=== PATIENT | female | born 2000 | race Two or more races ===

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

== ENCOUNTER 2019-03-07 21:14 | Emergency (ER) | payer BC ==
[~2019-03-07] VITALS: Ht 160 cm; Wt 79.4 kg
[2019-03-07 21:20] VITALS: BP 133/78
[2019-03-07] MEDS ORDERED: IBUPROFEN 600 MG TABLET PO ONE ×2 (22:00→22:02)
[2019-03-07] MEDS ORDERED: ONDANSETRON 4 MG TAB.RAPDIS ONE (22:02)
[2019-03-07] MEDS ORDERED: ONDANSETRON 4 MG TAB.RAPDIS SL ONE (22:30)
== END 2019-03-07 23:10 | disposition home or self-care (01) ==
LOC: ER 21:14
DX: B34.8 Other viral infections of unspecified site (principal)
CPT/HCPCS: 87804 ×2; 99283; Q0162

== ENCOUNTER 2019-03-11 02:42 | Emergency (ER) | payer BC, OTHER ==
[~2019-03-11] VITALS: Ht 157.5 cm; Wt 68.0 kg
[2019-03-11 02:45] VITALS: BP 118/68
--- NOTE | 2019-03-11 02:45 | NUR ---
PT AAOX4. C/O FEVER, SORE THROAT, LIP BLISTERS, NAUSEA, CHILLS X1 WEEK. ON KEFLEX X2 DAYS. PLACED ON MONITOR AND PULSE OX. VSS. AWAITING MD FOR EVAL.
[2019-03-11] MEDS ORDERED: ACETAMINOPHEN ES 500 MG TABLET ONE (03:11)
[2019-03-11] MEDS ORDERED: ONDANSETRON 4 MG TAB.RAPDIS ONE (03:12)
[2019-03-11] MEDS ORDERED: ONDANSETRON 4 MG TAB.RAPDIS SL ONE (03:30)
[2019-03-11] MEDS ORDERED: ACETAMINOPHEN ES 500 MG TABLET PO ONE (03:30)
== END 2019-03-11 03:45 | disposition home or self-care (01) ==
LOC: ER 02:44
DX: B34.9 Viral infection, unspecified (principal)
CPT/HCPCS: 99283; Q0162

== ENCOUNTER 2020-06-08 13:15 | Outpatient (CLI) | payer BC, OTHER ==
[2020-06-08 13:37] LABS: BASOPHILS # (AUTO) 0.1 /CMM (0.0-0.2); BASOPHILS % (AUTO) 0.6 % (0.0-2.0); EOSINOPHILS % (AUTO) 0.3 % (0.0-6.0); HEMATOCRIT 37 % (33-45); HEMOGLOBIN 12.2 g/dL (11.5-14.8); LYMPHOCYTES # (AUTO) 2.5 /CMM (0.8-4.8); MEAN CORPUSCULAR HGB CONC 33 g/dl (31.0-36.0); MEAN CORPUSCULAR VOLUME 85 fL (82-100); MONOCYTES # (AUTO) 0.4 /CMM (0.1-1.30); MONOCYTES % (AUTO) 4.4 % (2.0-12.0); NEUTROPHILS # (AUTO) 6.7 /CMM (1.8-8.9); NEUTROPHILS % (AUTO) 68.7 % (43.0-81.0); PLATELET COUNT (AUTO) 307 /CMM (150-450); WHITE BLOOD COUNT (AUTO) 9.7 K/uL (4.3-11.0)
== END 2020-06-08 23:59 | disposition home or self-care (01) ==
LOC: LAB 13:15
DX: Z01.812 Encounter for preprocedural laboratory examination (principal); J34.2 Deviated nasal septum; J34.3 Hypertrophy of nasal turbinates; J34.89 Other specified disorders of nose and nasal sinuses
CPT/HCPCS: 36415; 85025-TC; 85610-TC; 85730-TC

== ENCOUNTER → 2021-05-28 | Emergency (ER) | payer BC, OTHER ==
[~2021-05-28] VITALS: Ht 160 cm; Wt 68.0 kg
[~2021-05-28] MED LIST: AMOX-430 PO; KETOROLAC TROMETHAMINE INJ 30 MG/ML VIAL ONE; KETOROLAC TROMETHAMINE INJ 60 MG/2 ML VIAL IM ONE; TDAP [DIPH/PERTUSSIS/TET] 0.5 ML VIAL IM ONE
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
--- NOTE | 2021-05-28 01:56 | NUR ---
XRAY AT BEDSIDE
--- NOTE | 2021-05-28 04:54 | NUR ---
Patient discharged to home in stable condition. Written and verbal after care instructions given. Patient verbalizes understanding of instruction.
[2021-05-28 04:55] VITALS: BP 121/77
== END | disposition home or self-care (01) ==
LOC: ER 00:30
DX: S02.5XXA Fracture of tooth (traumatic), initial encounter for closed fracture (principal); S42.001A Fracture of unspecified part of right clavicle, initial encounter for closed fracture; V49.49XA Driver injured in collision with other motor vehicles in traffic accident, initial encounter; Y93.89 Activity, other specified; Y92.413 State road as the place of occurrence of the external cause; Y99.8 Other external cause status
CPT/HCPCS: 71100; 73030; 90471; 90715; 96372; 99284; J1885

== ENCOUNTER → 2023-07-17 | Outpatient (CLI) | payer BC, OTHER ==
[~2023-07-17] MED LIST changes: -KETOROLAC TROMETHAMINE INJ 30 MG/ML VIAL ONE; -KETOROLAC TROMETHAMINE INJ 60 MG/2 ML VIAL IM ONE; -TDAP [DIPH/PERTUSSIS/TET] 0.5 ML VIAL IM ONE
[2023-07-17 12:45] LABS: APPEARANCE,URINE CLEAR (CLEAR); BILIRUBIN,URINE NEGATIVE (NEGATIVE); BLOOD, URINE NEGATIVE Ery/uL (NEGATIVE); COLOR,URINE YELLOW (YELLOW); KETONES,URINE NEGATIVE (NEGATIVE); LEUKOCYTE ESTERASE ,URINE TRACE (NEGATIVE); NITRITE, URINE NEGATIVE (NEGATIVE); PH,URINE 6.5 (5.0-8.0); PROTEIN,URINE NEGATIVE (NEGATIVE); UGLUCOSE NEGATIVE (NEGATIVE); UROBILINOGEN,URINE 0.2 EU/dL (0.2)
[2023-07-17 13:02] LABS: RBC,URINE 0-2 /HPF (0-2)
[2023-07-17 13:03] LABS: ADD URINE CULTURE YES; SQUAMOUS EPITHELIAL CELL,UR Few /HPF (None Seen)
[2023-07-17 13:08] LABS: BACTERIA,URINE Few /HPF (None Seen)
[2023-07-17 13:22] LABS: THYROID STIMULATING HORMONE 3.826 uIU/mL (0.358-3.74)
[2023-07-17 13:32] LABS: ALBUMIN 3.8 g/dL (3.4-5.0); BILIRUBIN,TOTAL 0.8 mg/dL (0.2-1.0); CALCIUM, SERUM 9.9 mg/dL (8.5-10.1); CREATININE 0.7 mg/dL (0.6-1.3); POTASSIUM 3.8 mmol/L (3.5-5.1); TOTAL PROTEIN, SERUM 8.1 g/dL (6.4-8.2)
[2023-07-17 13:50] LABS: BASOPHILS % (AUTO) 0.4 % (0.0-2.0); EOSINOPHILS % (AUTO) 0.6 % (0.0-6.0); HEMATOCRIT 38 % (33-45); HEMOGLOBIN 12.6 g/dL (11.5-14.8); LYMPHOCYTES # (AUTO) 2.4 K/uL (0.8-4.8); LYMPHOCYTES % (AUTO) 28.4 % (20.0-44.0); MEAN CORPUSCULAR HEMOGLOBIN 29 PG (26.0-33.0); MEAN CORPUSCULAR HGB CONC 34 g/dl (31.0-36.0); MEAN CORPUSCULAR VOLUME 87 fL (82-100); MONOCYTES # (AUTO) 0.6 K/uL (0.1-1.30); MONOCYTES % (AUTO) 6.5 % (2.0-12.0); NEUTROPHILS # (AUTO) 5.5 K/uL (1.8-8.9); NEUTROPHILS % (AUTO) 64.1 % (43.0-81.0); PLATELET COUNT (AUTO) 319 K/uL (150-450); RED BLOOD CELL COUNT(AUTO) 4.34 MIL/uL (4.0-5.2); WHITE BLOOD COUNT (AUTO) 8.5 K/uL (4.3-11.0)
[2023-07-18 09:10] LABS: FOLIC ACID 6.3 ng/mL (>3.0)
[2023-07-18 13:11] LABS: VIT D, 25-HYDROXY 9.7 ng/mL (30.0-100.0)
== END | disposition home or self-care (01) ==
LOC: US 11:11
PROVIDERS: ATTEND Legal Medicine
DX: Z00.00 Encounter for general adult medical examination without abnormal findings (principal); E03.9 Hypothyroidism, unspecified; D64.9 Anemia, unspecified; E55.9 Vitamin D deficiency, unspecified; R10.9 Unspecified abdominal pain; E78.5 Hyperlipidemia, unspecified; R73.9 Hyperglycemia, unspecified
CPT/HCPCS: 36415; 76700-TC; 80053-TC; 80061-TC; 81001; 82306; 82607-TC; 82728-TC; 83540-TC; 84443-TC; 85025-TC; 87086-TC